=== PATIENT | male | born 1975 | race Asian ===

== ENCOUNTER → 2017-06-08 | Outpatient (CLI) | payer OTHER | END | disposition home or self-care (01) | LOC: RAD 13:50 | PROVIDERS: ATTEND Family Medicine | DX: J18.9 Pneumonia, unspecified organism (principal); R91.8 Other nonspecific abnormal finding of lung field | CPT/HCPCS: 71020 ==

== ENCOUNTER 2017-07-03 08:14 | Inpatient (IN) | payer OTHER ==
[~2017-07-03] VITALS: Ht 180.3 cm; Wt 89.4 kg
[2017-07-03] MEDS ORDERED: ALBUTEROL/IPRATROPIUM 2.5MG/0.5MG, 3 ML ONE (09:26)
[2017-07-03] MEDS ORDERED: KETOROLAC 30 MG/1 ML IVPush ONE (09:30)
[2017-07-03] MEDS ORDERED: ALBUTEROL/IPRATROPIUM 2.5MG/0.5MG, 3 ML NPPB ONE (09:30)
[2017-07-03] MEDS ORDERED: SODIUM CHLORIDE 0.9% 1,000ML IVBOLUS ONE (09:30)
[2017-07-03] MEDS ORDERED: KETOROLAC 30 MG/1 ML ONE (09:34)
[2017-07-03 09:43] LABS: HEMATOCRIT 43.7 % (39.2-51.8); HEMOGLOBIN 14.7 g/dL (13.7-18.0); WHITE BLOOD COUNT 8.3 x10^3/uL (3.4-10)
[2017-07-03 09:55] LABS: BLOOD UREA NITROGEN 10 mg/dL (7-18)
[2017-07-03] MEDS ORDERED: ALLO300T PO (12:33)
[2017-07-03] MEDS ORDERED: OMNIPAQUE 350 MG/ML, 100ML BOTTLE ONE (12:47)
[2017-07-03] MEDS ORDERED: DOCUSATE 100 MG CAPSULE PO PRN (14:30)
[2017-07-03] MEDS ORDERED: morphine SULFATE 10 MG/ML, 1ML IVPush PRN (14:30)
[2017-07-03] MEDS ORDERED: ONDANSETRON 2MG/ML, 2ML IVPush PRN (14:30)
[2017-07-03] MEDS ORDERED: ACETAMINOPHEN 325 MG TABLET PO PRN (14:30)
[2017-07-03] MEDS ORDERED: hydrALAzine 20 MG/ML, 1ML ONE (14:47)
[2017-07-03] MEDS: HYDROcodone/APAP 5/325 TABLET PO PRN ×2 (14:48→20:12)
[2017-07-03] MEDS: GUAIFENESIN/DM 200-20MG, 10ML UDC PO PRN (14:48)
[2017-07-03 14:49] VITALS: BP 177/117
[2017-07-03] MEDS: hydrALAzine 20 MG/ML, 1ML IV PRN (14:50)
[2017-07-03 15:18] LABS: TOTAL IRON BINDING CAPACITY 362 mcg/dL (250-450)
[2017-07-03 15:22] LABS: IS PT STATUS REG ER OR PRE ER? NO
[2017-07-03 15:35] VITALS: BP 173/106
[2017-07-03 15:40] LABS: FERRITIN 151.9 ng/mL (26-388)
[2017-07-03] MEDS: ENOXAPARIN 100 MG/ML SQ SCH (15:46)
[2017-07-03 16:40] VITALS: BP 152/97
[2017-07-03] MEDS ORDERED: SODIUM CHLORIDE NASAL SPRAY 45ML BOTTLE NAS PRN (17:30)
[2017-07-03] MEDS: BENZONATATE 100 MG CAPSULE PO SCH ×2 (18:23→20:12)
[2017-07-03 20:10] VITALS: BP 157/97
[2017-07-03 22:31] LABS: IS PT STATUS REG ER OR PRE ER? NO
[2017-07-04 03:41] VITALS: BP 152/91
[2017-07-04] MEDS: ENOXAPARIN 100 MG/ML SQ SCH ×2 (03:43→18:52)
[2017-07-04 04:09] LABS: HEMATOCRIT 41.8 % (39.2-51.8); HEMOGLOBIN 14.2 g/dL (13.7-18.0); WHITE BLOOD COUNT 15.5 x10^3/uL (3.4-10)
[2017-07-04 04:19] LABS: BLOOD UREA NITROGEN 14 mg/dL (7-18)
[2017-07-04 07:54] VITALS: BP 172/104
[2017-07-04] MEDS: hydrALAzine 20 MG/ML, 1ML IV PRN ×2 (08:27→12:20)
[2017-07-04] MEDS: BENZONATATE 100 MG CAPSULE PO SCH ×3 (10:32→21:07)
[2017-07-04] MEDS: LISINOPRIL 10 MG TABLET PO SCH (10:33)
[2017-07-04 11:58] VITALS: BP 173/96
[2017-07-04 14:19] VITALS: BP 142/78
[2017-07-04 19:23] VITALS: BP 138/86
[2017-07-04] MEDS: HYDROcodone/APAP 5/325 TABLET PO PRN (21:14)
[2017-07-04] MEDS: GUAIFENESIN/DM 200-20MG, 10ML UDC PO PRN (21:15)
[2017-07-05 01:46] VITALS: BP 162/95
[2017-07-05] MEDS: GUAIFENESIN/DM 200-20MG, 10ML UDC PO PRN (04:35)
[2017-07-05] MEDS: ENOXAPARIN 100 MG/ML SQ SCH (04:35)
[2017-07-05 04:36] VITALS: BP 161/90
[2017-07-05] MEDS: hydrALAzine 20 MG/ML, 1ML IV PRN (04:48)
[2017-07-05 06:08] LABS: HEMATOCRIT 43.2 % (39.2-51.8); HEMOGLOBIN 14.3 g/dL (13.7-18.0)
[2017-07-05 06:12] LABS: BLOOD UREA NITROGEN 11 mg/dL (7-18)
[2017-07-05] MEDS: LISINOPRIL 10 MG TABLET PO SCH (08:10)
[2017-07-05] MEDS: BENZONATATE 100 MG CAPSULE PO SCH (08:11)
[2017-07-05 08:14] VITALS: BP 142/76
[2017-07-05] MEDS ORDERED: POTASSIUM CHLORIDE 20 MEQ TAB.ER.PRT PO ONE (09:00)
[2017-07-05] MEDS ORDERED: RIVA1TAB PO (12:12)
[2017-07-05] MEDS ORDERED: AMLO5TAB2 PO (12:12)
[2017-07-05] MEDS ORDERED: BENZ100C PO (12:12)
[2017-07-05] MEDS ORDERED: GUAI1CAP19 PO (12:12)
[2017-07-05] MEDS ORDERED: RIVAROXABAN 15 MG TABLET PO SCH (12:30)
[2017-07-05] MEDS ORDERED: FLU VACC QS2017-18 (36MOS+) UP/PF 0.5 ML IM-VACC ONE (13:00)
== END 2017-07-05 14:35 | disposition home or self-care (01) | DRG 176 ==
LOC: ED 11:22 → EDIP 11:23 → ED 11:31 → 4WST 13:23
PROVIDERS: ADMIT Internal Medicine; ATTEND Internal Medicine
DX: I26.99 Other pulmonary embolism without acute cor pulmonale (principal); D50.8 Other iron deficiency anemias; D64.9 Anemia, unspecified; I10 Essential (primary) hypertension; J40 Bronchitis, not specified as acute or chronic; Z87.01 Personal history of pneumonia (recurrent); Z86.711 Personal history of pulmonary embolism; Z82.49 Family history of ischemic heart disease and other diseases of the circulatory system; Z79.899 Other long term (current) drug therapy; Z79.01 Long term (current) use of anticoagulants
CPT/HCPCS: 36415; 71020; 71275; 80048; 82040; 82728; 83540; 83550; 83735; 84484; 85025; 90686; 93005; 93306; 93970; 94640; 96361; 96374; J1650; J1885; J7620; Q9967; J0360; J2270; J7030

== ENCOUNTER → 2019-12-22 | Outpatient (CLI) | payer OTHER ==
[~2019-12-22] MED LIST: ALLO300T PO; AMLO-150 PO; BENZ100C PO; GUAI1CAP19 PO; RIVA1TAB PO
== END | disposition home or self-care (01) ==
LOC: CFH 08:24
PROVIDERS: ATTEND Family Medicine
DX: M47.817 Spondylosis without myelopathy or radiculopathy, lumbosacral region (principal); R20.0 Anesthesia of skin
CPT/HCPCS: 72100